=== PATIENT | male | born 1980 | race Two or more races ===

== ENCOUNTER 2021-04-04 09:45 | Emergency (ER) | payer OTHER ==
[~2021-04-04] VITALS: Ht 162.6 cm; Wt 88.9 kg
[~2021-04-04 09:45] MED LIST: OMEPRAZOLE20 M1
[2021-04-04] MEDS ORDERED: KETO10TA2 PO (12:58)
[2021-04-04] MEDS ORDERED: AMOX-CLAV 875-1 EACH PO (12:58)
[2021-04-04] MEDS ORDERED: ZYRTEC10 M3 PO (12:58)
== END 2021-04-04 14:38 | disposition home or self-care (01) ==
LOC: ER 09:45
DX: S60.562A Insect bite (nonvenomous) of left hand, initial encounter (principal); W57.XXXA Bitten or stung by nonvenomous insect and other nonvenomous arthropods, initial encounter; Y93.89 Activity, other specified; Y92.89 Other specified places as the place of occurrence of the external cause; Y99.8 Other external cause status